=== PATIENT | female | born 1965 | race Caucasian/White ===

== ENCOUNTER 2022-07-04 15:05 | Outpatient (CLI) | payer OTHER, SELFPAY | END 2022-07-04 15:06 | disposition home or self-care (01) | LOC: AMB 07-13 09:12 | PROVIDERS: PCP Physician Assistant Medical; Visit Provider Emergency Medicine Emergency Medical Services | DX: R42 Dizziness and giddiness (principal); R11.2 Nausea with vomiting, unspecified; R10.9 Unspecified abdominal pain | CPT/HCPCS: A0425; A0427 ==

== ENCOUNTER 2022-07-04 15:40 | Observation (INO) | payer OTHER, SELFPAY ==
[2022-07-04] VITALS (13 sets, daily range): BP systolic 128–169; BP diastolic 55–79; PULSE 66–88; RESP 13–24; TEMP 35.8; O2SAT 89–98; BMI 48.7
--- NOTE | 2022-07-04 16:31 | ED.NAVMDI ---
HPI - Nausea/Vomiting/Diarrhea General Chief complaint: Nausea/Vomiting Stated complaint: vomiting Time Seen by Provider: 07/04/22 16:19 History of Present Illness HPI Narrative: This 56-year-old female comes in because of sudden onset of vomiting with vertigo that occurred about 2 hours prior to arrival. She states that if she remains still and keeps her eyes closed her symptoms are minimal or gone. She does not report any headache or chest pain. She does not have pain anywhere. She does not have any neurologic deficit. Prior to this she was in her normal health. Related Data Home Medications Medication Instructions Recorded Confirmed amlodipine 5 mg tablet mg 07/04/22 citalopram 40 mg tablet mg 07/04/22 losartan 100 mg tablet mg 07/04/22 trazodone 50 mg tablet mg 07/04/22 Previous Rx's Medication Instructions Recorded meclizine 25 mg tablet 25 mg PO QID #20 tabs 07/04/22 ondansetron HCl 4 mg tablet 4 mg PO Q6H #20 tabs 07/04/22 Allergies Allergy/AdvReac Type Severity Reaction Status Date / Time Augmentin Allergy Mild Rash Uncoded 07/04/22 15:59 Review of Systems Status of ROS: Reports: 10 or more systems reviewed and unremarkable except as noted in History and below Narrative: Constitutional: No fevers, no weight gain or loss. Eyes: No discharge. No vision changes. HENT: No congestion, no sore throat, no ear pain. Cardiovascular: No chest pain, no palpitations. Respiratory: No shortness of breath, no wheezes, no cough. Gastrointestinal: No abdominal pain, no diarrhea. Nausea with vomiting. Genitourinary: No dysuria, no hematuria. Musculoskeletal: Normal range of motion. Skin: No rashes, no pruritis. Neurological: No weakness, sensory change, speech change. Vertigo symptoms as described above. Endo/Heme/Allergies: No bruising or bleeding. No polydipsia. Pysch: no suicidality, no anxiety, no insomnia. All other systems reviewed and are negative. PFSH PFSH Social History Smoking Status: Former smoker Do you use any of these nicotine containing products: None Second hand tobacco smoke exposure: No How often do you have a drink containing alcohol: never AUDIT-C Alcohol total score: 0 Non-prescribed substance use: denies use Exam Narrative: Exam Narrative: Constitutional: Well-developed, well-nourished, no acute distress. HEENT: Normocephalic, atraumatic. Neck: Normal range of motion. Nontender. Supple. Heart: Regular. No murmurs. Normal rate. Intact distal pulses. Lungs: Clear to auscultation. No chest discomfort. No wheezes, rhonchi, or rales. Abdomen: Normal bowel sounds. Nontender. No rebound tenderness. Genitalia: Deferred. Back: No midline tenderness. Normal range of motion. Extremities: Normal range of motion. No injury. Skin: Intact. No rash. Warm. No erythema or pallor. Neurologic: No altered sensation. No weakness. Alert and oriented. No facial asymmetry. Speech is normal. No unilateral weakness. Vertigo symptoms are absent when remaining still and keeping eyes closed. She did not have vertigo symptoms when opening her eyes and there was no sign of nystagmus. Psychiatric: No suicidality. No anxiety or depression. No insomnia. Nursing notes and vitals signs are reviewed. Const: Vital Signs, click to edit/add: Vital Signs - 24 hr 07/04/22 15:53 Temperature 96.5 F L Pulse Rate [Left P ulse Oximeter] 70 Respiratory Rate 16 Blood Pressure [Ri ght Upper Arm] 169/78 H Pulse Oximetry 92 Oxygen Delivery Me thod Room Air Course Vital Signs Vital signs: Initial Vital Signs Temperature 96.5 F L 07/04/22 15:53 Temperature Source Temporal Artery Scan 07/04/22 15:53 Pulse Rate 70 07/04/22 15:53 Respiratory Rate 16 07/04/22 15:53 Blood Pressure 169/78 H 07/04/22 15:53 Blood Pressure Mean 108 07/04/22 15:53 Blood Pressure Position Supine 07/04/22 15:53 Pulse Oximetry 92 07/04/22 15:53 Oxygen Delivery Method 07/04/22 15:53 Vital Signs Temperature 96.5 F L 07/04/22 15:53 Pulse Rate 70 07/04/22 15:53 Respiratory Rate 16 07/04/22 15:53 Blood Pressure 169/78 H 07/04/22 15:53 Pulse Oximetry 92 07/04/22 15:53 Oxygen Delivery Method 07/04/22 15:53 Temperature 96.5 F L 07/04/22 15:53 Pulse Rate 70 07/04/22 15:53 Respiratory Rate 16 07/04/22 15:53 Blood Pressure 169/78 H 07/04/22 15:53 Pulse Oximetry 92 07/04/22 15:53 Oxygen Delivery Method 07/04/22 15:53 MDM - Nausea/Vomiting/Diarrhea MDM Narrative Medical decision making narrative: This 56-year-old female comes in with symptoms typical of vestibular neuritis. Her vertigo symptoms are absent when remaining still indicating a peripheral process rather than central process for her vertigo. She came in by ambulance with an IV in place. She did receive a dose of IV Zofran. A tablet of meclizine 25 mg was also administered. EKG shows normal sinus rhythm without any ST or T-wave abnormalities. I did discuss other lab and imaging options which the patient declined in a process of shared decision making. The patient did not improve significantly with these medications. She continued to have some nystagmus when opening her eyes so I did recommend a CT scan of the head. This returned with no acute findings. The patient then also received a L of normal saline, 0.5 mg of Ativan, and another dose of Zofran. After another couple hours she did have improvement and her nystagmus is no longer present. I did sit her up in the bed and she began to have more vertigo symptoms but nevertheless is improving over time. She should be okay to return home. She is not showing any neurologic deficits. A prescription for meclizine is provided. Imaging Data CT scan - head: Radiologist's impression: Unremarkable noncontrast head CT. ECG Data Attestation: I personally reviewed and interpreted this ECG as follows: Interpretation: Normal sinus rhythm. Rate is 68 beats per minute. There are no ST or T-wave abnormalities. Discharge Plan Discharge Clinical Impression: Acute vestibular neuritis Patient Disposition: Home w/ Parent or Adult Condition: Improved Additional Instructions: Take [[id number]]medications as needed and indicated. Follow up with MD or return if worsening. Prescriptions: New ondansetron HCl 4 mg tablet 4 mg PO Q6H Qty: 20 0RF meclizine 25 mg tablet 25 mg PO QID Qty: 20 0RF No Action citalopram 40 mg tablet Label Comments: TAKE 1 TABLET BY MOUTH EVERY MORNING. trazodone 50 mg tablet Label Comments: TAKE 1-2 TABLETS BY MOUTH AT BEDTIME. amlodipine 5 mg tablet Label Comments: TAKE 1 TABLET BY MOUTH EVERY DAY losartan 100 mg tablet Label Comments: TAKE 1 TABLET BY MOUTH EVERY DAY Follow Up/Referrals: Bettie Stevens PA-C [Primary Care Provider] - Stand Alone Forms: My[facility] Info Instructions
[2022-07-04] MEDS: ONDANSETRON 2 MG/ML inj 4 MG IVP ×2 (16:47→20:51)
[2022-07-04] MEDS: MECLIZINE HCL 25 MG TABLET PO (16:47)
[2022-07-04] MEDS: 0.9 % SODIUM CHLORIDE 1000 ml 1,000 ML IV ×2 (16:48→18:18)
--- NOTE | 2022-07-04 18:04 | CRLHL7_ITS ---
For Patients: As a result of the Century Cures Act, medical imaging exams and procedure reports are released immediately into your electronic medical record. You may view this report before your referring provider. If you have questions, please contact your health care provider. INDICATION: Article. TECHNIQUE: CT head without contrast. COMPARISON: None. FINDINGS: CSF spaces: Within normal limits for age. Brain parenchyma and extra-axial spaces: The bradford-white differentiation is normal. No sign of mass, hemorrhage, or midline shift. No extra-axial fluid collection. Skull base and calvarium: The visualized paranasal sinuses and mastoid air cells demonstrate no acute or significant findings. The visualized orbits are grossly unremarkable. No skull fractures. IMPRESSION: Unremarkable noncontrast head CT. Please note that all CT scans at this facility use dose modulation, iterative reconstruction, and/or weight-based dosing when appropriate to reduce radiation dose to as low as reasonably achievable. Dictated by Arnie Hernandez MD @ 07/04/2022 6:53:23 PM (Electronically Signed)
[2022-07-04] MEDS: LORazepam 2 MG/ML inj 0.5 MG IV (18:18)
[2022-07-04] MEDS: diazePAM 5 MG/ML inj IV (20:51)
[2022-07-04] MEDS: hydrOXYzine pamoate 25 MG CAPSULE PO (20:51)
[2022-07-04] MEDS: dexAMETHasone 10 MG/ML inj IVP (22:58)
[2022-07-04 23:34] LABS: HCO3 VBG 31 mmol/L (21-28); PCO2 VBG 57 mmHG (40-50); PO2 VBG 26.9 mmHG (25-47); pH VBG 7.347 (7.32-7.43)
[2022-07-04 23:37] LABS: Basophils Percent Auto 0.1 % (0.0-3.0); Hematocrit 42.8 % (33.0-51.0); Hemoglobin* 13.7 gm/dL (12.0-16.0); Immature Granulocytes Abs Auto 0.03 K/uL (0.00-0.30); Lymphocytes Percent Auto 9.7 % (20-44); Mean Corpuscular HGB Conc 32 gm/dL (32-36); Mean Corpuscular Hemoglobin 31 pg (26-34); Mean Corpuscular Volume 97 fL (80-100); Monocytes Percent Auto 3.9 % (0.0-11.0); Platelet Count* 254 K/uL (140-440); RDW Coefficient of Variation % 12.2 % (11.5-15.5); Red Blood Count 4.43 m/uL (4.00-5.20); White Blood Count* 11.64 K/uL (4.50-11.00)
[2022-07-04 23:45] LABS: Slide Review Reflex No
[2022-07-04 23:51] LABS: Chloride* 107 mmol/L (96-114); Sodium* 143 mmol/L (135-149)
[2022-07-04 23:52] LABS: Potassium* 4.5 mmol/L (3.6-5.1)
[2022-07-04 23:53] LABS: Creatinine* 0.5 mg/dL (0.5-1.5); Est. Creatinine Clearance* 125.23; Estimated Glomerular Filt Rate 109 ml/min
[2022-07-04 23:54] LABS: Alanine Aminotransferase* 121 U/L (4-35); Alkaline Phosphatase* 70 U/L (40-150); Aspartate Amino Transferase* 76 U/L (12-35); Bilirubin Total* 0.4 mg/dL (0.1-1.5); Blood Urea Nitrogen* 11 mg/dL (7-30); Carbon Dioxide* 29 mmol/L (20-32)
[2022-07-04 23:55] LABS: Calcium* 8.6 mg/dL (8.4-10.6); Glucose* 121 mg/dL (60-115)
[2022-07-05] VITALS (14 sets, daily range): BP systolic 120–144; BP diastolic 60–74; PULSE 68–89; RESP 16–20; TEMP 35.8–37.3; O2SAT 91–98; BMI 49.5
[2022-07-05 00:04] LABS: NT Pro B Type NatriureticPept* 120 PG/mL (0-125)
[2022-07-05 00:13] LABS: Troponin I* < 0.01 ng/mL (0.01-0.04)
[2022-07-05 00:13] LABS: SARS PCR* Negative SARS-CoV-2 (Negative)
--- NOTE | 2022-07-05 02:22 | P.IMCN_ITS ---
Date of Consult Consult date: 07/05/22 Primary Care Provider: Bettie Stevens PA-C Consult Narrative Narrative: [facility] Hospitalist ADMISSION SUPPORT NOTE eHospitalist was contacted by Dr. Nix with request of admission support. Chief complaint: Dizziness HPI: The patient presents with complaints of dizziness. She reports that she was just sitting on her floor sorting out some papers when suddenly the room just started spinning. She throughout. Shortly afterward presented to the ED. She reports that when she closes her eyes her symptoms improve however on upward gaze or looking straight ahead her symptoms are worse. Despite treatment in the ED she continues to feel dizzy however her nausea has improved. Review of systems other than mentioned above is negative Home Medications/Pertinent Medical History/Pertinent Social History: Reviewed see EMR for details Review of Systems Status of ROS: Reports: 10 or more systems reviewed and unremarkable except as noted in History and below PFSH PFSH Social History Smoking Status: Former smoker Do you use any of these nicotine containing products: None Second hand tobacco smoke exposure: No How often do you have a drink containing alcohol: never AUDIT-C Alcohol total score: 0 Non-prescribed substance use: denies use Meds Home Medications and Allergies Home Medications Medication Instructions Recorded Confirmed Type amlodipine 5 mg tablet mg 07/04/22 History citalopram 40 mg tablet mg 07/04/22 History losartan 100 mg tablet mg 07/04/22 History trazodone 50 mg tablet mg 07/04/22 History Allergies Allergy/AdvReac Type Severity Reaction Status Date / Time Augmentin Allergy Mild Rash Uncoded 07/04/22 15:59 Exam Narrative: Exam Narrative: Exam (performed via interactive video with assistance of bedside nurse): General: Alert, cooperative, no acute distress, morbidly obese HEENT: Oral mucosa pink and moist without erythema Lungs: Clear to auscultation bilaterally without crackle or wheeze CV: Regular rate and rhythm without rub or gallop, 1/6 systolic murmur heard best at the LUSB, distant heart sounds Ext: No pitting edema noted Skin: No rashes, bruises or lesions appreciated on gross visualization of exposed skin Neuro: Alert, oriented x 3. CN III -VII, XI, XII grossly intact, moves all extremities without any significant focal deficit appreciated , horizontal nystagmus noted Const: Vital Signs, click to edit/add: Vital Signs - 24 hr 07/04/22 15:53 07/04/22 16:50 07/04/22 17:30 Temperature 96.5 F L Pulse Rate [Left P ulse Oximeter] 70 70 66 Respiratory Rate 16 24 24 Blood Pressure [Ri ght Upper Arm] 169/78 H 138/79 141/71 H Pulse Oximetry 92 93 Oxygen Delivery Me thod Room Air Room Air Room Air Oxygen Flow Rate 07/04/22 18:00 07/04/22 17:00 07/04/22 18:41 Temperature Pulse Rate [Left P ulse Oximeter] 78 72 76 Respiratory Rate 21 20 20 Blood Pressure [Ri ght Upper Arm] 136/55 L 142/77 H 142/79 H Pulse Oximetry 90 93 92 Oxygen Delivery Me thod Room Air Room Air Room Air Oxygen Flow Rate 07/04/22 19:00 07/04/22 19:30 07/04/22 20:00 Temperature Pulse Rate [Left P ulse Oximeter] 80 85 88 Respiratory Rate 20 17 13 Blood Pressure [Ri ght Upper Arm] 136/73 128/65 135/61 Pulse Oximetry 89 90 90 Oxygen Delivery Me thod Room Air Room Air Room Air Oxygen Flow Rate 07/04/22 22:00 07/04/22 19:30 07/04/22 22:30 Temperature Pulse Rate [Left P ulse Oximeter] 85 86 Respiratory Rate 16 16 Blood Pressure [Ri ght Upper Arm] 128/65 146/74 H Pulse Oximetry 98 98 98 Oxygen Delivery Me thod Room Air Room Air Oxygen Flow Rate 07/04/22 23:30 07/05/22 00:30 07/05/22 01:30 Temperature 96.5 F L Pulse Rate [Left P ulse Oximeter] 79 83 87 Respiratory Rate 16 16 16 Blood Pressure [Ri ght Upper Arm] 140/68 H 137/69 144/74 H Pulse Oximetry 98 98 98 Oxygen Delivery Me thod Room Air Room Air Room Air Oxygen Flow Rate 07/04/22 21:15 Temperature Pulse Rate [Left P ulse Oximeter] Respiratory Rate Blood Pressure [Ri ght Upper Arm] Pulse Oximetry 95 Oxygen Delivery Me thod Nasal Cannula Oxygen Flow Rate 2 Labs Labs: Short CBC 07/04/22 Range/Units 23:30 WBC 11.64 H (4.50-11.00) K/uL Hgb 13.7 (12.0-16.0) gm/dL Hct 42.8 (33.0-51.0) % Plt Count 254 (140-440) K/uL BMP 07/04/22 23:30 Sodium 143 Potassium 4.5 Chloride 107 Carbon Dioxide 29 BUN 11 Creatinine 0.5 Glucose 121 H Calcium 8.6 Cardiac Enzymes 07/04/22 Range/Units 23:30 Troponin I < 0.01 L (0.01-0.04) ng/mL Liver Function 07/04/22 Range/Units 23:30 Total Bilirubin 0.4 (0.1-1.5) mg/dL Direct Bilirubin 0.0 (0.0-0.5) mg/dL AST 76 H (12-35) U/L ALT 121 H (4-35) U/L Alkaline Phosphatase 70 (40-150) U/L Albumin 4.0 (3.3-5.0) g/dL Assessment and Plan Assessment and plan (1) BPPV (benign paroxysmal positional vertigo): Status: Acute Plan Recent lab/CT scan head: Reviewed see EMR for details EKG: Unavailable for review at the time of this documentation Assessment and Plan: 1. Vertigo-likely secondary to BPPV. As needed meclizine and Valium ordered as well as antiemetics. Occupational Therapy consult for vestibular maneuvers 2. Obstructive sleep apnea-stable on CPAP 3. Hypertension-resume amlodipine and losartan once reconciled 4. Depression-stable on citalopram 5. DVT prophylaxis twice daily dosing of Lovenox given BMI greater than 40 6. CODE STATUS full code discussed with patient Chart review was performed as well as evaluation of the patient via video. Thank you for involving ehospitalist. Please contact [phone] if further assistance is needed.
[2022-07-05] MEDS: 0.9 % SODIUM CHLORIDE 1000 ml 1,000 ML 125 ML IV (06:12)
[2022-07-05] MEDS: LORazepam 2 MG/ML inj 1 MG IVP (09:00)
[2022-07-05] MEDS: ENOXAPARIN 40 MG/0.4 ML INJ SUBCUT ×2 (09:40→20:02)
[2022-07-05] MEDS: MECLIZINE HCL 25 MG TABLET PO (09:40)
--- NOTE | 2022-07-05 12:57 | P.IMHP_ITS ---
Hospitalist- H&P: HPI History of Present Illness Date Seen: 07/05/22 Chief complaint: vomiting Narrative: Madi Mcknight is a 56 year old female with obesity, hypertension, sleep apnea, presents with acute onset of vertigo and vomiting this afternoon. She was sitting on the floor with her daughter when she had abrupt onset of vertigo and then vomiting. She presents emergency room for evaluation. They could not get her symptoms to stop and so she was admitted overnight for this. She reports that she has otherwise been generally well. she does note that she has some nasal congestion but no other significant respiratory illness. She has had no head injury. She has had no change in her hearing, loss of hearing, ringing or buzzing in her ear. She has had no fever, cough, dyspnea. She describes the vertigo as a sensation that the room is spinning. This is exacerbated by any head movement and improves if she holds her head still and closes her eyes. Overnight her symptoms of got better but not resolved entirely. She has had no previous history of this. Review of Systems Narrative: She reports no other symptoms of illness or injury. [facility] Medical History (Updated 07/05/22 @ 13:12 by Melecio Dolan MD) Depression Hyperlipidemia Hypertension Obstructive sleep apnea Surgical History (Updated 07/05/22 @ 13:05 by Melecio Dolan MD) H/O Achilles tendon repair H/O section H/O colonoscopy H/O wisdom tooth extraction History of carpal tunnel release History of cholecystectomy Family History (Updated 07/05/22 @ 13:05 by Melecio Dolan MD) Brother Alcohol dependence Father Alcohol dependence Other Breast cancer Social History (Updated 07/05/22 @ 13:07 by Melecio Dolan MD) Narrative: 56-year-old female lives alone. Previously lived with her partner Marjorie. Marjorie is still healthcare power of litigation attorney associate. Code status is full. She is a teacher. She does not smoke. She rarely drinks alcohol. No recreational drug use. Smoking Status: Former smoker Do you use any of these nicotine containing products: None Second hand tobacco smoke exposure: No How often do you have a drink containing alcohol: never AUDIT-C Alcohol total score: 0 Non-prescribed substance use: denies use Caffeine: No service: No Meds Home Medications and Allergies Home Medications Medication Instructions Recorded Confirmed Type amlodipine 5 mg tablet 5 mg PO DAILY 07/04/22 07/05/22 History citalopram 40 mg tablet 40 mg PO DAILY 07/04/22 07/05/22 History losartan 100 mg tablet 100 mg PO DAILY 07/04/22 07/05/22 History trazodone 50 mg tablet 50 - 100 mg PO HS 07/04/22 07/05/22 History Allergies Allergy/AdvReac Type Severity Reaction Status Date / Time Augmentin Allergy Mild Rash Uncoded 07/04/22 15:59 Exam Narrative: Exam Narrative: She is alert and oriented to her circumstances. Initially leaving her eyes closed for comfort. When she opens her eyes she is observed to have nystagmus intermittently exacerbated by any head movement. No head trauma. Pupils are equal round reactive to light. Extraocular movements are full. Visual napoles intact. No facial asymmetry. Oropharynx is small airway. Tongue is midline. Neck is supple without mass or adenopathy. Respirations are clear to auscultation. Cardiovascular: S1, S2, regular rate and rhythm. Abdomen is soft without tenderness or mass. She has intact pulses and sensation. Vuzpxu-[id number] bilaterally normal. Intact strength in all 4 extremities. No rash I do some otolith repositioning maneuvers with significant but not complete resolution of symptoms. Const: Vital Signs, click to edit/add: Vital Signs - 24 hr 07/04/22 15:53 07/04/22 16:50 07/04/22 17:30 Temperature 96.5 F L Pulse Rate Pulse Rate [Left P ulse Oximeter] 70 70 66 Respiratory Rate 16 24 24 Blood Pressure [Ri ght Upper Arm] 169/78 H 138/79 141/71 H Pulse Oximetry 92 93 Oxygen Delivery Me thod Room Air Room Air Room Air Oxygen Flow Rate 07/04/22 18:00 07/04/22 17:00 07/04/22 18:41 Temperature Pulse Rate Pulse Rate [Left P ulse Oximeter] 78 72 76 Respiratory Rate 21 20 20 Blood Pressure [Ri ght Upper Arm] 136/55 L 142/77 H 142/79 H Pulse Oximetry 90 93 92 Oxygen Delivery Me thod Room Air Room Air Room Air Oxygen Flow Rate 07/04/22 19:00 07/04/22 19:30 07/04/22 20:00 Temperature Pulse Rate Pulse Rate [Left P ulse Oximeter] 80 85 88 Respiratory Rate 20 17 13 Blood Pressure [Ri ght Upper Arm] 136/73 128/65 135/61 Pulse Oximetry 89 90 90 Oxygen Delivery Me thod Room Air Room Air Room Air Oxygen Flow Rate 07/04/22 22:00 07/04/22 19:30 07/04/22 22:30 Temperature Pulse Rate Pulse Rate [Left P ulse Oximeter] 85 86 Respiratory Rate 16 16 Blood Pressure [Ri ght Upper Arm] 128/65 146/74 H Pulse Oximetry 98 98 98 Oxygen Delivery Me thod Room Air Room Air Oxygen Flow Rate 07/04/22 23:30 07/05/22 00:30 07/05/22 01:30 Temperature 96.5 F L Pulse Rate Pulse Rate [Left P ulse Oximeter] 79 83 87 Respiratory Rate 16 16 16 Blood Pressure [Ri ght Upper Arm] 140/68 H 137/69 144/74 H Pulse Oximetry 98 98 98 Oxygen Delivery Me thod Room Air Room Air Room Air Oxygen Flow Rate 07/04/22 21:15 07/05/22 01:32 07/05/22 02:59 Temperature Pulse Rate Pulse Rate [Left P ulse Oximeter] Respiratory Rate 16 Blood Pressure [Ri ght Upper Arm] Pulse Oximetry 95 94 94 Oxygen Delivery Me thod Nasal Cannula Nasal Cannula Oxygen Flow Rate 2 2 07/05/22 02:04 07/05/22 03:58 07/05/22 04:22 Temperature 97 F L Pulse Rate 78 Pulse Rate [Left P ulse Oximeter] Respiratory Rate 16 16 Blood Pressure [Ri ght Upper Arm] Pulse Oximetry 94 94 Oxygen Delivery Me thod Nasal Cannula Nasal Cannula Oxygen Flow Rate 2 2 07/05/22 07:00 Temperature Pulse Rate 74 Pulse Rate [Left P ulse Oximeter] Respiratory Rate Blood Pressure [Ri ght Upper Arm] Pulse Oximetry Oxygen Delivery Me thod Oxygen Flow Rate Hospitalist - H&P: Result Labs Labs: Short CBC 07/04/22 Range/Units 23:30 WBC 11.64 H (4.50-11.00) K/uL Hgb 13.7 (12.0-16.0) gm/dL Hct 42.8 (33.0-51.0) % Plt Count 254 (140-440) K/uL BMP 07/04/22 23:30 Sodium 143 Potassium 4.5 Chloride 107 Carbon Dioxide 29 BUN 11 Creatinine 0.5 Glucose 121 H Calcium 8.6 Cardiac Enzymes 07/04/22 Range/Units 23:30 Troponin I < 0.01 L (0.01-0.04) ng/mL Liver Function 07/04/22 Range/Units 23:30 Total Bilirubin 0.4 (0.1-1.5) mg/dL Direct Bilirubin 0.0 (0.0-0.5) mg/dL AST 76 H (12-35) U/L ALT 121 H (4-35) U/L Alkaline Phosphatase 70 (40-150) U/L Albumin 4.0 (3.3-5.0) g/dL Assessment and Plan Assessment and plan (1) Vertigo: Problem comment: Patient has fairly severe vertigo. Etiology is uncertain. No other apparent neurologic deficits. No other apparent underlying causes. On repeat visits patient reports improvement but not complete resolution of symptoms Status: Acute Assessment and Plan: Continue in hospital until patient is able to function including eating and walking. Total time spent today is 70 minutes, 40 minutes in coordination of care and discussing with patient other providers ongoing management of vertigo.
--- NOTE | 2022-07-05 18:57 | PC.NURSE ---
Pt admitted for vertigo. IV ativan given prior to Dr. Dolan's morning rounds when he performed vestibular maneuvers at bedside. Prn meclizine given once which caused pt 's dizziness to improve, however she was quite sleepy. Pt able to walk to [facility] with assist of 2, with GB. She is an obese white female who uses CPAP at home for TRENA. In the hospital she uses oxygen at 2L/nc to maintain her oxygen sat levels. Tele indicates NSR. IV left AC discontinued d/to puffiness and tenderness noted by patient mid-morning. Pt was a possible d/c so IV site not restarted by primary RN, since she was eating/drinking fluid liberally. Tele indicates NSR. Dr. Dolan decided to keep pt overnight and has scheduled an MRI for her in the morning to investigate her unresolved dizziness. Report to Mimi Crawford RN for evening shift,.
[2022-07-05] MEDS: CITALOPRAM HYDROBROMIDE 20 MG TABLET 40 MG PO (20:01)
[2022-07-05] MEDS: ACETAMINOPHEN 325 MG TABLET 650 MG PO (20:01)
[2022-07-05] MEDS: AMLODIPINE 5 MG TABLET PO (20:01)
[2022-07-05] MEDS: LOSARTAN POTASSIUM 50 MG TABLET 100 MG PO (20:02)
[2022-07-05] MEDS: TRAZODONE HCL 50 MG TABLET PO (20:09)
[2022-07-06] VITALS: PULSE 72; RESP 20; O2SAT 91
[2022-07-06 03:00] VITALS: BP 132/61; PULSE 78; RESP 20; TEMP 37.1; O2SAT 90
--- NOTE | 2022-07-06 06:41 | PC.NURSE ---
Patient denies any nausea overnight. States that her dizziness seems overall better however still feels like she is on a merry go round. Up to the BR with SBA and gait belt - tolerated fair, holding on the counter/wall as she walked. Tele shows NSR. IV taken out of left arm - order received from Dr. Cristóbal norman to leave out.
[2022-07-06 07:30] VITALS: BP 135/70; PULSE 63; RESP 20; TEMP 36.9; O2SAT 98
--- NOTE | 2022-07-06 08:00 | CRLHL7_ITS ---
For Patients: As a result of the Century Cures Act, medical imaging exams and procedure reports are released immediately into your electronic medical record. You may view this report before your referring provider. If you have questions, please contact your health care provider. Indication: Vertigo Technique: Noncontrast sagittal T1 weighted, axial FLAIR, axial T2 weighted, axial SWI, and axial diffusion weighted sequences are provided. Comparison: CT 07/04/22 Findings: The ventricles, sulci and gyri are normal size, shape and contour for age. Incidental prominent prevascular spaces. The midline structures are centrally located with no evidence of shift. There are no suspicious intra or extra-axial fluid collections. No evidence of pathologic susceptibility artifacts. No region of restricted diffusion. Expected flow voids in the cavernous carotids and basilar artery. Impression: 1. No acute intracranial abnormality. 2. Incidental prominent perivascular spaces. Dictated by Nolberto Briseno MD @ 07/06/2022 12:33:34 PM (Electronically Signed)
[2022-07-06] MEDS: CITALOPRAM HYDROBROMIDE 20 MG TABLET 40 MG PO (09:59)
[2022-07-06] MEDS: ENOXAPARIN 40 MG/0.4 ML INJ SUBCUT (10:00)
[2022-07-06] MEDS: AMLODIPINE 5 MG TABLET PO (10:00)
[2022-07-06] MEDS: LOSARTAN POTASSIUM 50 MG TABLET 100 MG PO (10:00)
[2022-07-06] MEDS: LORazepam 0.5 MG TABLET PO (10:32)
[2022-07-06 11:00] VITALS: BP 148/73; PULSE 68; RESP 18; TEMP 36.9; O2SAT 98
--- NOTE | 2022-07-06 11:30 | PC.NURSE ---
shift note: orthostatic BP's: laying 135/70 p=63; sitting 149/71 p=67 ( pt states she felt dizzy; standing 158/77 p=71. Dr. Dolan notified
--- NOTE | 2022-07-06 12:01 | P.IMPN_ITS ---
Progress Note: A&P Assessment and plan (1) Vertigo: Problem details: Patient has fairly severe vertigo. Etiology is uncertain. No other apparent neurologic deficits. No other apparent underlying causes. On repeat visits patient reports improvement but not complete resolution of symptoms. MRI of the brain is unremarkable. Status: Acute Plan Continue symptomatic management. Brain imaging for central lesion. Subjective Date Seen: 07/06/22 Interval history: 56-year-old female seen in followup of hospital admission for vertigo and vomiting. Patient is reporting being modestly better but still having persistent vertigo even when she is not moving her head. She is mostly keeping her eyes closed. She has had no further vomiting. She has not have a headache or a fever. Still very unsteady on her feet when she is walking. Exam Narrative: Exam Narrative: She is alert and appears in no distress. She is sitting at the edge of her bed. Pinnas external canals TMs bilaterally normal. Eyes are normal. She has slight nystagmus even wounds holding her head still and looking straight ahead. Leftward gaze increases the nystagmus markedly. No facial asymmetry. Oropharynx with small airway. Respirations are clear to auscultation. Cardiovascular S1, S2, regular rate and rhythm. No murmur gallop or rub. [id number] is accurate bilaterally. Const: Vital Signs, click to edit/add: Vital Signs - 24 hr 07/05/22 15:00 07/05/22 16:30 07/05/22 20:00 Temperature 98.8 F 98.2 F Pulse Rate 68 Pulse Rate [Left A pical] 74 76 Respiratory Rate 20 20 Blood Pressure [Ri [facility] Arm] 135/64 120/60 Pulse Oximetry 92 91 Oxygen Delivery Me thod Room Air Room Air Oxygen Flow Rate 07/05/22 23:00 07/06/22 00:00 07/05/22 23:00 Temperature Pulse Rate 68 Pulse Rate [Left A pical] 76 72 Respiratory Rate 20 20 Blood Pressure [Ri [facility] Arm] Pulse Oximetry 91 Oxygen Delivery Me thod Room Air Oxygen Flow Rate 07/06/22 03:00 07/06/22 07:30 Temperature 98.7 F 98.4 F Pulse Rate Pulse Rate [Left A pical] 78 63 Respiratory Rate 20 20 Blood Pressure [[facility] Arm] 132/61 135/70 Pulse Oximetry 90 98 Oxygen Delivery Me thod Nasal Cannula Room Air Oxygen Flow Rate 2 Documenting provider has reviewed patient's vital signs: yes
[2022-07-06 15:00] VITALS: RESP 18
--- NOTE | 2022-07-06 15:19 | PM.DS1 ---
DS: Providers Provider Date Seen: 07/06/22 Date of admission: 07/05/22 01:42 Primary care physician: Bettie Stevens PA-C Admitting Clinician: Guillermina Ambrocio MD Attending Physician on discharge: Guillermina Ambrocio MD Date of Discharge: 07/06/22 DS: Diagnosis Discharge Diagnosis (1) Vertigo: Status: Acute Problem details: Patient has fairly severe vertigo. Etiology is uncertain. No other apparent neurologic deficits. No other apparent underlying causes. On repeat visits patient reports improvement but not complete resolution of symptoms. MRI of the brain is unremarkable. DS: Summary Hospital Course Hospital Course: 56-year-old female admitted through the emergency department with severe vertigo and vomiting. Evaluation showed nonfocal neurologic examination and normal head CT and normal MRI. Otolith repositioning maneuvers improved but did not resolve symptoms. Vomiting resolved. Patient was able to walk but remained unsteady. Time Spent with Patient Time attestation: Total time spent providing and/or coordinating discharge services: Time spent: Greater than 30 minutes Exam Narrative: Exam Narrative: See dictation from earlier today. She is alert and in no distress. Speech is normal. Examination of the eyes so show still some persistent nystagmus with extraocular movements. Neurologic exam is otherwise nonfocal. Const: Vital Signs, click to edit/add: Vital Signs - 24 hr 07/05/22 16:30 07/05/22 20:00 07/05/22 23:00 Temperature 98.8 F 98.2 F Pulse Rate Pulse Rate [Left A pical] 74 76 76 Respiratory Rate 20 20 20 Blood Pressure [Ri ght Arm] 135/64 120/60 Pulse Oximetry 92 91 Oxygen Delivery Me thod Room Air Room Air Oxygen Flow Rate 07/06/22 00:00 07/05/22 23:00 07/06/22 03:00 Temperature 98.7 F Pulse Rate 68 Pulse Rate [Left A pical] 72 78 Respiratory Rate 20 20 Blood Pressure [Ri ght Arm] 132/61 Pulse Oximetry 91 90 Oxygen Delivery Me thod Room Air Nasal Cannula Oxygen Flow Rate 2 07/06/22 07:30 07/06/22 11:00 Temperature 98.4 F 98.4 F Pulse Rate Pulse Rate [Left A pical] 63 68 Respiratory Rate 20 18 Blood Pressure [Ri ght Arm] 135/70 148/73 H Pulse Oximetry 98 98 Oxygen Delivery Me thod Room Air Room Air Oxygen Flow Rate Documenting provider has reviewed patient's vital signs: yes Discharge Plan Discharge Disposition: Home, Self-Care Date of Admission: 07/05/22 01:42 Primary Care Provider: Bettie Stevens Condition: Improved Anticipated Discharge Date/Time: 07/06/22 15:16 Discharge Medications: New ondansetron HCl 4 mg tablet 4 mg PO Q6H Qty: 20 0RF meclizine 25 mg tablet 25 mg PO QID Qty: 20 0RF meclizine 25 mg Tablet 25 mg PO TID PRN (Reason: Vertigo) Qty: 30 0RF Continued citalopram 40 mg tablet 40 mg PO DAILY Label Comments: TAKE 1 TABLET BY MOUTH EVERY MORNING. trazodone 50 mg tablet 50 - 100 mg PO HS Label Comments: TAKE 1-2 TABLETS BY MOUTH AT BEDTIME. amlodipine 5 mg tablet 5 mg PO DAILY Label Comments: TAKE 1 TABLET BY MOUTH EVERY DAY losartan 100 mg tablet 100 mg PO DAILY Label Comments: TAKE 1 TABLET BY MOUTH EVERY DAY Discharge Orders: Discharge Order (Routine); Ordered 07/06/22 Ordered By: Melecio Dolan Additional Instructions: Take meclizine as needed for vertigo. It will make you tired. See your doctor next week if you are not better. Outpatient PT and OT evaluation and treatment. Activity Level: Activity as Tolerated Discharge Diet: Regular Follow Up Appointments: Bettie Stevens PA-C [Primary Care Provider] - Forms: [facility] Inst[facility]
--- NOTE | 2022-07-06 19:03 | PC.NURSE ---
shift note: vss stable. pt afeb. No IV at dc. Belongings reviewed and sent with pt at dc. copies of dc instructions sent with pt. Pt showered prior to dc.
== END 2022-07-06 17:00 | disposition home or self-care (01) ==
LOC: ED 20:53 → MEDSURG 07-05 01:52
PROVIDERS: Family Medicine; Admitting Provider Family Medicine; Emergency Provider Emergency Medicine Emergency Medical Services; PCP Physician Assistant Medical; Visit Provider Family Medicine
DX: H81.10 Benign paroxysmal vertigo, unspecified ear (principal); Z87.891 Personal history of nicotine dependence; R11.10 Vomiting, unspecified; G47.33 Obstructive sleep apnea (adult) (pediatric); I10 Essential (primary) hypertension; F32.A Depression, unspecified; E66.9 Obesity, unspecified; Z68.42 Body mass index [BMI] 45.0-49.9, adult; R09.81 Nasal congestion; E78.5 Hyperlipidemia, unspecified; Z98.890 Other specified postprocedural states; Z90.49 Acquired absence of other specified parts of digestive tract
CPT/HCPCS: 36415; 70450; 70551; 80048; 80076; 82803; 83735; 83880; 84443; 84484; 85025; 86140; 87635; 93005; 94761; 96361; 96372; 96374; 96375; 99285; G0378; A9270; G0379; J1100; J1650; J2060; J2405; J3360; J7030

== ENCOUNTER 2022-10-04 15:17 | Emergency (ER) | payer OTHER, SELFPAY ==
[2022-10-04 15:26] VITALS: BP 161/69; PULSE 72; RESP 20; TEMP 35.9; O2SAT 96; BMI 48.7
[2022-10-04 15:53] VITALS: BP 159/69; PULSE 72; RESP 16; TEMP 36.1; O2SAT 96
--- NOTE | 2022-10-04 16:28 | ED.WOUNDLAC ---
HPI - Wound/Laceration General Date Seen: 10/04/22 Chief Complaint: Laceration/Wound Stated Complaint: Sliced open right pointer finger Time Seen by Provider: 10/04/22 15:20 Source: patient Mode of arrival: ambulatory Limitations: no limitations History of Present Illness HPI narrative: Patient is a very nice lady who presents here for evaluation of a cut on her left index finger, she did this while peeling potatoes. This occurred approximately half an hour ago, blood a little bit she thinks she may need a stitch or 2. 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 Medications Medication Instructions Recorded Confirmed amlodipine 5 mg tablet 5 mg PO DAILY 07/04/22 07/05/22 citalopram 40 mg tablet 40 mg PO DAILY 07/04/22 07/05/22 losartan 100 mg tablet 100 mg PO DAILY 07/04/22 07/05/22 trazodone 50 mg tablet 50 - 100 mg PO HS 07/04/22 07/05/22 Previous Rx's Medication Instructions Recorded meclizine 25 mg tablet 25 mg PO QID #20 tabs 07/04/22 ondansetron HCl 4 mg tablet 4 mg PO Q6H #20 tabs 07/04/22 meclizine 25 mg tablet 25 mg PO TID PRN Vertigo #30 tabs 07/06/22 Allergies Allergy/AdvReac Type Severity Reaction Status Date / Time adhesive tape Allergy Verified 10/04/22 15:25 amoxicillin [From Augmentin] Allergy Verified 10/04/22 15:25 clavulanic acid Allergy Verified 10/04/22 15:25 [From Augmentin] Review of Systems Status of ROS: Reports: 6 or more systems reviewed and unremarkable except as noted in History and below PFSH PFSH Medical History Depression Hyperlipidemia Hypertension Obstructive sleep apnea Surgical History H/O Achilles tendon repair H/O section H/O colonoscopy H/O wisdom tooth extraction History of carpal tunnel release History of cholecystectomy Family History Brother Alcohol dependence Father Alcohol dependence Other Breast cancer Social History Narrative: 56-year-old female lives alone. Previously lived with her partner Marjorie. Marjorie is still healthcare power of state's attorney. Code status is full. She is a teacher. She does not smoke. She rarely drinks alcohol. No recreational drug use. Smoking Status: Former smoker Do you use any of these nicotine containing products: None Second hand tobacco smoke exposure: No How often do you have a drink containing alcohol: never AUDIT-C Alcohol total score: 0 Non-prescribed substance use: denies use Caffeine: No service: No Exam Narrative: Exam Narrative: On examination she is in no apparent distress her finger has a small cut on radial side just outside the nail, the last goes about 1 cm. Is not acutely bleeding, sensation is normal over her pad, with normal D IP PIP flexion extension, cap refill is normal, I did give her options about closure with 1 stitch verses glue, after our discussion she chose the glue, Wound was soaked for approximately 30 minutes and Hibiclens solution, cleaned and there is no evidence of any foreign body, I was able to derma pena this with no problem at all, and I gave her a stack finger splint she can put on when it dries. Glue instructions are given. Const: Vital Signs, click to edit/add: Vital Signs - 24 hr 10/04/22 15:26 10/04/22 15:53 Temperature 96.6 F L 97.0 F L Pulse Rate [Pulse Oximeter] 72 72 Respiratory Rate 20 16 Blood Pressure [Le ft Forearm] 161/69 H 159/69 H Pulse Oximetry 96 96 Oxygen Delivery Me thod Room Air Room Air Course Vital Signs Vital signs: Initial Vital Signs Temperature 96.6 F L 10/04/22 15:26 Temperature Source Temporal Artery Scan 10/04/22 15:26 Pulse Rate 72 10/04/22 15:26 Pulse Rhythm 10/04/22 15:26 Respiratory Rate 20 10/04/22 15:26 Blood Pressure 161/69 H 10/04/22 15:26 Blood Pressure Mean 99 10/04/22 15:26 Blood Pressure Position Sitting 10/04/22 15:26 Pulse Oximetry 96 10/04/22 15:26 Oxygen Delivery Method 10/04/22 15:26 Vital Signs Temperature 96.6 F L 10/04/22 15:26 Pulse Rate 72 10/04/22 15:26 Respiratory Rate 20 10/04/22 15:26 Blood Pressure 161/69 H 10/04/22 15:26 Pulse Oximetry 96 10/04/22 15:26 Oxygen Delivery Method 10/04/22 15:26 Temperature 97.0 F L 10/04/22 15:53 Pulse Rate 72 10/04/22 15:53 Respiratory Rate 16 10/04/22 15:53 Blood Pressure 159/69 H 10/04/22 15:53 Pulse Oximetry 96 10/04/22 15:53 Oxygen Delivery Method 10/04/22 15:53 MDM - Wound/Laceration MDM Narrative Medical decision making narrative: Laceration to the finger, I also considered altered diagnosis such as digital nerve issues, joint issues, fracture, Discharge Plan Discharge Clinical Impression: Laceration Patient Disposition: Home, Self-Care Instructions: Finger Laceration (ED), Laceration Without Closure (ED) Additional Instructions: Home rest please do not put any antibiotic ointment on your wound, as this will break the glue down, use the finger brace I gave you 30 minutes after the glue gets dry. Signs of infection such as redness swelling he should come back at once, otherwise the glue comes off by itself in 3-4 days Prescriptions: No Action citalopram 40 mg tablet 40 mg PO DAILY Label Comments: TAKE 1 TABLET BY MOUTH EVERY MORNING. trazodone 50 mg tablet 50 - 100 mg PO HS Label Comments: TAKE 1-2 TABLETS BY MOUTH AT BEDTIME. amlodipine 5 mg tablet 5 mg PO DAILY Label Comments: TAKE 1 TABLET BY MOUTH EVERY DAY losartan 100 mg tablet 100 mg PO DAILY Label Comments: TAKE 1 TABLET BY MOUTH EVERY DAY ondansetron HCl 4 mg tablet 4 mg PO Q6H Qty: 20 0RF meclizine 25 mg tablet 25 mg PO QID Qty: 20 0RF meclizine 25 mg Tablet 25 mg PO TID PRN (Reason: Vertigo) Qty: 30 0RF Follow Up/Referrals: Bettie Stevens PA-C [Primary Care Provider] - Stand Alone Forms: [facility] Info Instructions
== END 2022-10-04 16:38 | disposition home or self-care (01) ==
PROVIDERS: Emergency Provider Family Medicine; PCP Physician Assistant Medical
DX: S61.211A Laceration without foreign body of left index finger without damage to nail, initial encounter (principal); W26.0XXA Contact with knife, initial encounter
CPT/HCPCS: 12001; 99283